=== PATIENT | male | born 1970 | race Caucasian/White ===

== ENCOUNTER 2024-08-25 03:35 | Inpatient (IN) | payer OTHER ==
[~2024-08-25] VITALS: Ht 154.4 cm; Wt 72.6 kg
[2024-08-25 06:54] LABS: CHLORIDE 101 mEq/L (98-107); POTASSIUM 3.8 mEq/L (3.5-5.1); SODIUM 140 mEq/L (136-145)
[2024-08-25 06:55] LABS: CARBON DIOXIDE 30 mEq/L (21-32)
[2024-08-25 06:56] LABS: CALCIUM 8.8 mg/dL (8.7-10.4)
[2024-08-25] MEDS: PANTOPRAZOLE SODIUM 40 MG/VIAL IV ONE (06:59)
[2024-08-25 07:00] LABS: CREATININE 0.5 mg/dL (0.6-1.3)
[2024-08-25] MEDS: ONDANSETRON HCL 4MG/2ML INJ IV ONE (07:00)
[2024-08-25] MEDS: LORAZEPAM 2MG/ML INJ IV ONE (07:00)
[2024-08-25] MEDS: CEFTRIAXONE 1GM/50ML 50 ML IV ONE (07:00)
[2024-08-25 07:01] LABS: ETHANOL BLOOD 286 mg/dL (<10); GLUCOSE 213 mg/dL (70-105); UREA NITROGEN BLOOD 8 mg/dL (9-23)
[2024-08-25 07:03] LABS: TROPONIN I HIGH SENSITIVITY 5 ng/L (3.0-53)
[2024-08-25 07:23] LABS: ALANINE AMINOTRANSFERASE 155 IU/L (10-49); ALBUMIN 3.9 g/dL (3.2-4.8); ASPARTATE AMINOTRANSFERASE 187 IU/L (<34); BILIRUBIN DIRECT 0.3 mg/dL (<=3.0); BILIRUBIN TOTAL 0.7 mg/dL (0.1-1.0); PROTEIN TOTAL 7.8 g/dL (6.0-8.3)
[2024-08-25 07:50] LABS: BASOPHILS % 0.8 % (0.0-2.0); EOSINOPHILS % 0.2 % (0.0-5.0); HEMATOCRIT. 40.3 % (42.0-52.0); HEMOGLOBIN. 13.8 g/dL (14.0-18.0); LYMPHOCYTES % 20.9 % (20.0-50.0); MEAN CORPUSCULAR HEMOGLOBIN 30.1 pg (28.0-32.0); MEAN CORPUSCULAR HGB CONC 34.2 g/dL (31.0-37.0); MEAN PLATELET VOLUME 8.1 fl (7.4-10.4); MONOCYTES % 10.9 % (2.0-8.0); NEUTROPHILS % 67.2 % (40.0-76.0); PLATELET 67 x1000/uL (130-400); RED BLOOD CELL COUNT 4.59 mill/uL (4.7-6.1); WHITE BLOOD COUNT 4.2 x1000/uL (4.5-11.0)
[2024-08-25] MEDS: IOHEXOL-300 100 ML BOTTLE ONE (07:50)
[2024-08-25] MEDS: OCTREOTIDE ACETATE 50 MCG/ML 1ML SUBCUT ONE (09:39)
[2024-08-25] MEDS: FOLIC ACID 1 MG, THIAMINE HCL 100 MG, MVI, ADULT NO.1 10 ML in DEXTROSE 5% WATER 1,000 ML IV ONE (16:09)
[2024-08-25] MEDS: SUCRALFATE 1G TABLET PO SCH (17:00)
[2024-08-25 18:55] VITALS: BP 158/86; PULSE 89; RESP 20; TEMP 37.5856
[2024-08-25 20:00] VITALS: BP 124/62; PULSE 76; RESP 20; TEMP 37.05852; O2SAT 100
[2024-08-25] MEDS: PANTOPRAZOLE SODIUM 40 MG/VIAL IV SCH (20:29)
[2024-08-25] MEDS: LORAZEPAM 2MG/ML INJ IV PRN (20:52)
[2024-08-25 22:13] LABS: HEMATOCRIT 42.2 % (42.0-52.0)
[2024-08-25] MEDS ORDERED: BO1 TP (23:59)
[2024-08-25] MEDS ORDERED: METF750T46 PO (23:59)
[2024-08-26] VITALS: BP 152/75; PULSE 89; RESP 20; TEMP 37.16964; O2SAT 98
[2024-08-26 04:00] VITALS: BP 148/80; PULSE 85; RESP 20; TEMP 37.05852; O2SAT 100
[2024-08-26 06:34] LABS: BASOPHILS % 0.6 % (0.0-2.0); EOSINOPHILS % 0.1 % (0.0-5.0); HEMATOCRIT. 41.8 % (42.0-52.0); HEMOGLOBIN. 13.9 g/dL (14.0-18.0); LYMPHOCYTES % 12.2 % (20.0-50.0); MEAN CORPUSCULAR HEMOGLOBIN 29.2 pg (28.0-32.0); MEAN CORPUSCULAR HGB CONC 33.2 g/dL (31.0-37.0); MEAN CORPUSCULAR VOLUME 88.1 fL (80.0-94.0); MEAN PLATELET VOLUME 8.7 fl (7.4-10.4); MONOCYTES % 12.6 % (2.0-8.0); NEUTROPHILS % 74.5 % (40.0-76.0); PLATELET 77 x1000/uL (130-400); RED BLOOD CELL COUNT 4.74 mill/uL (4.7-6.1); RED CELL DISTRIBUTION WIDTH 18.2 % (11.6-14.6)
[2024-08-26 06:55] LABS: CHLORIDE 97 mEq/L (98-107); POTASSIUM 3.8 mEq/L (3.5-5.1); SODIUM 134 mEq/L (136-145)
[2024-08-26 06:56] LABS: CALCIUM 9.9 mg/dL (8.7-10.4); CARBON DIOXIDE 28 mEq/L (21-32)
[2024-08-26 07:00] LABS: FERRITIN 82 ng/mL (22-322); FOLIC ACID (FOLATE) SERUM 11.64 ng/mL (>5.38); IRON 311 ug/dL (65-175); VITAMIN B12 SERUM 859 pg/mL (211-911)
[2024-08-26 07:01] LABS: CREATININE 0.8 mg/dL (0.6-1.3); GLUCOSE 234 mg/dL (70-105); UREA NITROGEN BLOOD 21 mg/dL (9-23)
[2024-08-26 07:02] LABS: ALANINE AMINOTRANSFERASE 127 IU/L (10-49); ALBUMIN 4.3 g/dL (3.2-4.8); ASPARTATE AMINOTRANSFERASE 120 IU/L (<34); PROTEIN TOTAL 8.8 g/dL (6.0-8.3); TOTAL IRON BINDING CAPACITY 364 ug/dl (250-425)
[2024-08-26 07:03] LABS: BILIRUBIN DIRECT 0.5 mg/dL (<=3.0); BILIRUBIN TOTAL 1.5 mg/dL (0.1-1.0)
[2024-08-26 07:10] LABS: HEPATITIS B SURFACE ANTIGEN NEGATIVE (Negative)
[2024-08-26 07:11] LABS: PROTHROMBIN TIME 11.5 sec (9.6-11.0)
[2024-08-26 07:24] LABS: CLARITY URINE CLEAR (CLEAR); COLOR URINE YELLOW (YELLOW); GLUCOSE URINE 3+ (NEGATIVE); KETONES URINE 2+ (NEGATIVE); LEUKOCYTE ESTERASE URINE NEGATIVE (NEGATIVE); NITRITE URINE NEGATIVE (NEGATIVE); OCCULT BLOOD URINE NEGATIVE (NEGATIVE); PH URINE 7.5 (4.5-8.0); PROTEIN URINE 2+ (NEGATIVE); SPECIFIC GRAVITY URINE 1.036 (1.005-1.030)
[2024-08-26 07:31] LABS: HEPATITIS A AB IGM NEGATIVE (Negative); HEPATITIS B CORE AB IGM NEGATIVE (Negative)
[2024-08-26 07:32] LABS: HEPATITIS C AB NON REACTIVE (Neg) (Negative)
[2024-08-26 07:38] LABS: *AMPHETAMINES SCREEN URINE NEGATIVE (NEGATIVE); *BARBITURATES SCREEN URINE NEGATIVE (NEGATIVE); *BENZODIAZEPINES SCREEN URINE NEGATIVE (NEGATIVE); *COCAINE SCREEN URINE NEGATIVE (NEGATIVE); CANNABINOID URINE SCREEN NEGATIVE (NEGATIVE); ECSTASY MDMA SCREEN URINE NEGATIVE (NEGATIVE); METHADONE URINE SCREEN NEGATIVE (NEGATIVE); OPIATES URINE SCREEN NEGATIVE (NEGATIVE); PHENCYCLIDINE URINE SCREEN NEGATIVE (NEGATIVE)
[2024-08-26 08:00] VITALS: BP 133/86; PULSE 89; RESP 20; TEMP 37.00296; O2SAT 96
[2024-08-26 08:04] LABS: BACTERIA URINE TRACE; RBC URINE 0-2 /hpf (0-2); SQUAMOUS EPITHELIAL CELL URINE RARE /lpf (RARE/1+)
[2024-08-26 08:05] LABS: WBC URINE 0-2 /hpf (0-2)
[2024-08-26] MEDS: ONDANSETRON HCL 4MG/2ML INJ IV PRN (09:00)
[2024-08-26 12:00] VITALS: BP 130/88; PULSE 81; RESP 20; TEMP 37.05852; O2SAT 96
[2024-08-26] MEDS: MAGNESIUM/ALUMINUM HYDROXIDE/SIMETHICONE 30ML UDC PO PRN (13:11)
[2024-08-26] MEDS: METOCLOPRAMIDE HCL 10MG/2ML VIAL IV NR (13:12)
[2024-08-26 16:00] VITALS: BP 124/81; PULSE 94; RESP 18; TEMP 37.05852; O2SAT 96
[2024-08-26] MEDS ORDERED: DEXTROSE 50% WATER 50ML SYRINGE IV PRN (19:45)
[2024-08-26 20:00] VITALS: BP 142/85; PULSE 93; RESP 20; TEMP 37.55856; O2SAT 100
[2024-08-26] MEDS: BLOOD SUGAR DIAGNOSTIC STRIP TEST SCH (21:10)
[2024-08-26] MEDS: INSULIN LISPRO 100 UNITS/ML SUBCUT SCH (21:10)
[2024-08-27] VITALS: BP 122/74; PULSE 80; RESP 19; TEMP 36.78072; O2SAT 98
[2024-08-27 04:00] VITALS: BP 100/69; PULSE 83; RESP 19; TEMP 36.3918; O2SAT 96
[2024-08-27 07:25] LABS: HEMATOCRIT 34.7 % (42.0-52.0); HEMOGLOBIN 11.7 g/dL (14.0-18.0)
[2024-08-27 08:00] VITALS: BP 111/65; PULSE 81; RESP 18; TEMP 36.44736; O2SAT 97
[2024-08-27 12:00] VITALS: BP 125/81; PULSE 85; RESP 18; TEMP 36.114; O2SAT 98
[2024-08-27 15:47] VITALS: BP 133/83; PULSE 87; RESP 18; TEMP 36.3918; O2SAT 97
[2024-08-27] MEDS: FOLIC ACID 1 MG, THIAMINE HCL 100 MG, MVI, ADULT NO.1 10 ML in DEXTROSE 5% WATER 1,000 ML IV ONE (18:39)
[2024-08-27] MEDS: DEXT 5%/0.45% NACL 1000ML 1,000 ML IV SCH (18:46)
[2024-08-27 20:00] VITALS: BP 133/70; PULSE 86; RESP 18; TEMP 36.3918; O2SAT 98
[2024-08-28] VITALS: BP 125/76; PULSE 78; RESP 18; TEMP 36.3918; O2SAT 97
[2024-08-28 04:00] VITALS: BP 113/70; PULSE 61; RESP 18; TEMP 36.3918; O2SAT 98
[2024-08-28 07:28] LABS: PROTHROMBIN TIME 11.4 sec (9.6-11.0)
[2024-08-28 07:32] LABS: EOSINOPHILS % 0.8 % (0.0-5.0); HEMATOCRIT. 35.1 % (42.0-52.0); HEMOGLOBIN. 11.9 g/dL (14.0-18.0); LYMPHOCYTES % 17.9 % (20.0-50.0); MEAN CORPUSCULAR HGB CONC 33.9 g/dL (31.0-37.0); MEAN CORPUSCULAR VOLUME 88.4 fL (80.0-94.0); MEAN PLATELET VOLUME 8.6 fl (7.4-10.4); MONOCYTES % 13.1 % (2.0-8.0); NEUTROPHILS % 67.2 % (40.0-76.0); PLATELET 96 x1000/uL (130-400); RED BLOOD CELL COUNT 3.97 mill/uL (4.7-6.1); RED CELL DISTRIBUTION WIDTH 18.3 % (11.6-14.6); WHITE BLOOD COUNT 6.5 x1000/uL (4.5-11.0)
[2024-08-28 07:46] LABS: CALCIUM 9.3 mg/dL (8.7-10.4); CARBON DIOXIDE 25 mEq/L (21-32); CHLORIDE 99 mEq/L (98-107); POTASSIUM 3.5 mEq/L (3.5-5.1); SODIUM 133 mEq/L (136-145)
[2024-08-28 07:52] LABS: CREATININE 0.7 mg/dL (0.6-1.3); GLUCOSE 186 mg/dL (70-105); UREA NITROGEN BLOOD 11 mg/dL (9-23)
[2024-08-28 08:00] VITALS: BP 112/82; PULSE 70; RESP 18; TEMP 36.50292; O2SAT 100
[2024-08-28 12:00] VITALS: BP 119/84; PULSE 71; RESP 20; TEMP 36.50292; O2SAT 100
[2024-08-28] MEDS ORDERED: HYDROMORPHONE HCL/PF 1MG/ML INJ IV PRN (15:15)
[2024-08-28] MEDS ORDERED: ONDANSETRON HCL 4MG/2ML INJ IV PRN (15:15)
[2024-08-28] MEDS ORDERED: MEPERIDINE HCL/PF 25MG/ML CPJ IV PRN (15:15)
[2024-08-28] MEDS ORDERED: LABETALOL 5MG/ML 4ML INJ IV PRN (15:15)
[2024-08-28 16:00] VITALS: BP 110/75; PULSE 70; RESP 18; TEMP 36.114; O2SAT 100
[2024-08-28] MEDS: CARVEDILOL 3.125 MG TABLET PO NR (17:51)
[2024-08-28 20:00] VITALS: BP 125/61; PULSE 78; RESP 18; TEMP 36.33624; O2SAT 98
[2024-08-29] VITALS: BP 122/52; PULSE 74; RESP 18; TEMP 36.33624; O2SAT 98
[2024-08-29 04:00] VITALS: BP 132/56; PULSE 81; RESP 18; TEMP 36.33624; O2SAT 98
[2024-08-29 08:00] VITALS: BP 107/66; PULSE 65; RESP 20; TEMP 36.44736; O2SAT 98
[2024-08-29 12:00] VITALS: BP_SYST 107; BP_DIAS 65; BP_DIAS 66; PULSE 65; PULSE 69; RESP 18; RESP 20; TEMP 36.44736; O2SAT 100; O2SAT 98
[2024-08-29 13:36] VITALS: BP 107/66; PULSE 65; TEMP 97.6; O2SAT 98
[2024-08-29] MEDS: MAGNESIUM/ALUMINUM HYDROXIDE/SIMETHICONE 30ML UDC PO NR (15:34)
[2024-08-29] MEDS ORDERED: CARVEDILOL 3.125 MG TABLET PO SCH (21:00)
[2024-08-30] MEDS ORDERED: PROT40 MT (13:13)
== END 2024-08-29 18:30 | disposition home or self-care (01) | DRG 241 ==
LOC: ER 03:35 → 7WST 08:10 → EDBEDREQTM 08:28 → EDBEDREQ 08:28
PROVIDERS: ADMIT Internal Medicine; ATTEND Internal Medicine
PROC: 0DB68ZX Excision of Stomach, Via Natural or Artificial Opening Endoscopic, Diagnostic (ICD-10-PCS; principal; 2024-08-28)
DX: K29.71 Gastritis, unspecified, with bleeding (principal); D69.6 Thrombocytopenia, unspecified; I85.10 Secondary esophageal varices without bleeding; K76.6 Portal hypertension; E87.1 Hypo-osmolality and hyponatremia; K25.4 Chronic or unspecified gastric ulcer with hemorrhage; D64.9 Anemia, unspecified; E11.9 Type 2 diabetes mellitus without complications; K70.10 Alcoholic hepatitis without ascites; F10.239 Alcohol dependence with withdrawal, unspecified; F10.229 Alcohol dependence with intoxication, unspecified; Y90.9 Presence of alcohol in blood, level not specified; L03.012 Cellulitis of left finger; K31.89 Other diseases of stomach and duodenum; K76.0 Fatty (change of) liver, not elsewhere classified; K82.8 Other specified diseases of gallbladder; Z79.84 Long term (current) use of oral hypoglycemic drugs
CPT/HCPCS: 36415; 71045; 73120; 74177; 76705; 80048; 80076; 80305; 80320; 81003; 82105; 82607; 82728; 82746; 82962; 83036; 83540; 83550; 83735; 84484; 85014; 85018; 85025; 85044; 86705; 86709; 87340; 88305; 88312; 88313; 93005; 99285; J0696; J1815; J2060; J2354; J2405; J2470; J2765; J3411; J3490; J7070; Q9967; G0480